=== PATIENT | male | born 1955 | race Caucasian/White ===

== ENCOUNTER 2021-06-23 15:22 | Emergency (ER) | payer MEDICAID, SELFPAY ==
[~2021-06-23] VITALS: Ht 180.3 cm; Wt 77.1 kg
[~2021-06-23 15:22] MED LIST: CARV3.1246 PO; LIP10 PO
[2021-06-23 15:25] VITALS: BP_SYST 124
--- NOTE | 2021-06-23 16:00 | NUR ---
Patient to ER bed 1 to gown for evaluation. Side rails up. Report given to [].
--- NOTE | 2021-06-23 16:15 | NUR ---
pt bib als run c/o sob and desaturation. pt recently dc from hospital and sent on hospice. pt aox2. ra 93%. nad. safety maintained.
--- NOTE | 2021-06-23 18:32 | NUR ---
[facility]
[2021-06-23 18:33] VITALS: BP_SYST 141
== END 2021-06-23 18:33 ==
LOC: SED 15:22
DX: R06.02 Shortness of breath (principal); I10 Essential (primary) hypertension; E11.9 Type 2 diabetes mellitus without complications; Z79.899 Other long term (current) drug therapy; Z20.822 Contact with and (suspected) exposure to COVID-19; Z88.0 Allergy status to penicillin
CPT/HCPCS: 36415; 93005; 99284